=== PATIENT | female | born 1965 | race Caucasian/White ===

== ENCOUNTER → 2021-06-19 | Outpatient (CLI) | payer OTHER | LOC: SLEEP 13:33 | DX: G47.33 Obstructive sleep apnea (adult) (pediatric) (principal); J30.9 Allergic rhinitis, unspecified; D64.9 Anemia, unspecified; M54.9 Dorsalgia, unspecified; F31.9 Bipolar disorder, unspecified; R68.3 Clubbing of fingers; F41.9 Anxiety disorder, unspecified; E78.00 Pure hypercholesterolemia, unspecified; G47.61 Periodic limb movement disorder | CPT/HCPCS: 95810 ==